=== PATIENT | male | born 1990 | race Caucasian/White ===

== ENCOUNTER → 2018-07-29 | Outpatient (CLI) | payer OTHER ==
[~2018-07-29] MED LIST: ACET-1966 PO; FEX60 PO; GADOBENATE 529MG/1ML 15ML VIAL IVP ONE; IBUP200C74 PO; NO; NS(*) 0.9% 50 ML BAG 50 ML ONE; PANT40TA65 PO; PER PO
--- NOTE | 2018-07-29 11:20 | RADIOLOGY IMAGING REPORT ---
FACILITY: [facility] - [place] PATIENT NAME: Can Bingham : 1990 MR: [id number] V: [id number] EXAM DATE: ORDERING PHYSICIAN: KARINE SCHULER TECHNOLOGIST: Location: [facility] - [place] Patient: Can Bingham : 1990 Visit/Account:[id number] Date of Sevice: 07/29/2018 MR BRAIN/BRAIN STEM W/ & W/O CON Comparisons: None. Additional pertinent history: Hypergonadism TECHNIQUE: Multiplanar, multisequence brain MRI was performed with and without gadolinium contrast.D edicated thin section imaging was performed through the pituitary fossa both in the coronal and sagit husam plane. CONTRAST: 15 ml of MultiHance. FINDINGS: Sagittal midline structures and craniocervical junction: Negative. Midline shift: None. Ventricles: Negative. Brain parenchyma: Diffusion weighted imaging: Negative. Gradient sequence: Not performed T2 weighted FLAIR images: Negative. Dedicated imaging through the pituitary fossa: Pituitary stalk/optic chiasm: Negative Pituitary gland/pituitary fossa: Mild asymmetric fullness of the right aspect of the pituit kamaljit gland measuring 8 mm concerning for an underlying microadenoma Cavernous sinuses: Negative Skull base flow voids: Negative Extra-axial spaces: Negative. Dural venous sinuses and major arterial flow voids: Negative. Intracranial enhancement: Negative.. Mastoid air cells and paranasal sinuses: Negative. Surrounding soft tissues and orbits: Negative. Impression: 1. 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 2. Remaining portions of the exam are within normal limits. Report Dictated By: Omar Buck MD at 07/29/2018 11:07 AM Report E-Signed By: Omar Buck MD at 07/29/2018 11:15 AM WSN:[id number]
== END ==
LOC: MRI 01:23
PROVIDERS: ATTEND Internal Medicine
DX: D35.2 Benign neoplasm of pituitary gland (principal)
CPT/HCPCS: 70553; A9577; J7050